=== PATIENT | male | born 2005 | race Caucasian/White ===

== ENCOUNTER 2024-01-13 21:11 | Emergency (ER) | payer MEDICAID ==
[2024-01-13 21:17] VITALS: TEMP 99.4; O2SAT 100
--- NOTE | 2024-01-13 21:34 | ERPHSYRPT ---
- History of Present Illness Time Seen by Provider: 01/13/24 21:30 Source: patient Exam Limitations: no limitations Patient Subjective Stated Complaint: headache x4 days Triage Nursing Assessment: Pt ambulated into ER without diff, pt alert and patti ented x4. Pt c/o headache x4 days, denies any nausea or vomiting. Pt's girlfriend thought it might be due to his rt ear because he was scratching his ear and cut the inside of it. No cuts or abrasions noted to rt ear. Physician History: 18yo m presents for right sided KINNEY x 4d. Pt reports the KINNEY has persisted for 4d, has waxed and wained in intensity. Pt reports ibuprofen tends to help his sx. Pt reports the pain has been keeping him from sleeping. Pt denies any vision changes, n/v, photophobia. Pt denies any recent trauma to the head or neck. Pt denies any hx of HAs of this nature. Pt denies any weakness in the extremities. Pt reports no significant pmhx, does not take any medications daily. Timing/Duration: day(s) (4), constant Quality: aching Head Pain Location: temporal Severity of Pain-Max: moderate Severity of Pain-Current: moderate Recent Head Trauma: no recent headache/trauma Modifying Factors: Improves With: medication Associated Symptoms: neck pain (chronic), No confusion, No dizziness, No fatigue, No facial pain, No fever/chills, No light-headedness, No loss of consciousness, No nausea/vomiting, No nasal congestion, No nasal drainage, No numbness in legs/feet, No rash, No seizures, No stiff neck, No trouble walking, No vision changes, No visual disturbance, No weakness Previous symptoms: no prior history Allergies/Adverse Reactions: No Known Drug Allergies Allergy (Unverified 01/13/24 21:25) Home Medications: No Reportable Medications [No Reported Medications] 01/13/24 [History] Hx Tetanus, Diphtheria Vaccination/Date Given: Yes Hx Influenza Vaccination/Date Given: No Hx Pneumococcal Vaccination/Date Given: No Travel Risk - International Travel Have you traveled outside of the country in past 3 weeks: No - Emerging Infectious Disease Are you exhibiting symptoms associated with any current EIDs: Yes Symptoms: Headaches/Body Aches/ - Review of Systems Constitutional: No Symptoms Eyes: No Eye Pain, No Photophobia, No Tearing, No Vision Changes, No Double Vision Ears, Nose, & Throat: No Ear Pain, No Hearing Changes, No Nose Pain, No Throat Pain Respiratory: No Symptoms Cardiac: No Symptoms Abdominal/Gastrointestinal: No Symptoms Neurological: Headache, No Dizziness, No Focal Weakness, No Gait Changes, No Parasthesia, No Sensory Changes, No Speech Changes - Past Medical History Pertinent Past Medical History: Yes Neurological History: No Pertinent History ENT History: No Pertinent History Cardiac History: No Pertinent History Respiratory History: No Pertinent History Endocrine Medical History: No Pertinent History Musculoskeletal History: No Pertinent History GI Medical History: No Pertinent History History: No Pertinent History Psycho-Social History: Attention Deficit Disorder, Other Male Reproductive Disorders: No Pertinent History Other Medical History: anger management in 2nd grade - Past Surgical History Past Surgical History: No - Social History Smoking Status: Current every day smoker How long have you smoked: 5 years Exposure to second hand smoke: Yes Drug Use: none - Social Determinants of Health Will the patient participate in the screening: Yes Do you worry about a steady place to live?: No Do you have any problems with any of the following?: Pest (bugs,ants,or mice) In the past 12 months,have you had to go without utilities?: No Transportation Issues: No Has anyone in your support network made you feel unsafe?: No Have you or anyone in your house had to go without enough: No - Nursing Vital Signs Nursing Vital Signs: Initial Vital Signs Temperature 99.4 F 01/13/24 21:16 Pulse Rate 80 01/13/24 21:16 Respiratory Rate 17 01/13/24 21:16 Blood Pressure 150/90 01/13/24 21:16 O2 Sat by Pulse Oximetry 100 01/13/24 21:16 Pain Scale Pain Intensity 4 - Physical Exam General Appearance: no apparent distress, alert Eye Exam: PERRL/EOMI, eyes nml inspection Ears, Nose, Throat Exam: normal ENT inspection, TMs normal, pharynx normal Neck Exam: normal inspection, non-tender, supple Respiratory Exam: normal breath sounds, lungs clear, airway intact, No chest tenderness, No respiratory distress Cardiovascular Exam: regular rate/rhythm, normal heart sounds Mental Status Exam: alert, oriented x 3, cooperative software design engineer Exam: normal hearing, normal speech, PERRL, No facial asymmetry Coordination/Gait Exam: normal finger to nose, normal gait, normal cerebellar function Motor/Sensory Exam: no motor deficit, no sensory deficit, no pronator drift, negative Babinski's sign Skin Exam: normal color, warm, dry SpO2 Interpretation: normal SpO2: 100 O2 Delivery: Room Air Ordered Tests: Active Orders 24 hr Category Date Time Status HEAD WITHOUT CONTRAST [CT] Stat Exams 01/13/24 21:33 Completed Medication Summary Discontinued Medications Generic Name Dose Route Start Last Admin Trade Name Neno PRN Reason Stop Dose Admin Diphenhydramine HCl 50 mg 01/13/24 22:23 01/13/24 22:39 Diphenhydramine Hcl 50 Mg/Ml Vial IM 01/13/24 22:24 50 mg STAT ONE Administration Diphenhydramine HCl Confirm 01/13/24 22:30 Diphenhydramine Hcl 50 Mg/Ml Vial Administered 01/13/24 22:31 Dose 50 mg .ROUTE .STK-MED ONE Droperidol 1.25 mg 01/13/24 21:33 01/13/24 21:40 Droperidol 5 Mg/2 Ml Vial IM 01/13/24 21:34 1.25 mg STAT ONE Administration Droperidol Confirm 01/13/24 21:36 Droperidol 5 Mg/2 Ml Vial Administered 01/13/24 21:37 Dose 5 mg .ROUTE .STK-MED ONE Ketorolac Tromethamine 30 mg 01/13/24 22:25 01/13/24 22:37 Ketorolac Tromethamine 30 Mg/Ml Inj IM 01/13/24 22:26 30 mg STAT ONE Administration Ketorolac Tromethamine Confirm 01/13/24 22:30 Ketorolac Tromethamine 30 Mg/Ml Inj Administered 01/13/24 22:31 Dose 30 mg .ROUTE .STK-MED ONE - Progress Progress: improved Air Movement: good Progress Note: 01/13/24 22:25 pain not completely resolved w/ droperidol will add toradol and benadryl IM 01/13/24 22:36 CT head showed: Normal CT of the head without contrast. No acute intracranial abnormality identified. 01/13/24 22:56 Pt reports resolution of KINNEY plan for discharge home, given list of primary care providers in area for follow up DO NOT TAKE ANY NSAIDS (ibuprofen, advil, naproxen, aleve) FOR THE NEXT 24 HOURS recommend avoiding bright lights, loud sounds, strong scents for the next few days if possible can use tylenol if sx return, cool rag on forehead for pain return to ED if: develop vision changes, develop significant neck pain, develop nausea/vomiting, develop confusion or speech changes Blood Culture(s) Obtained: No Antibiotics given: No Counseled pt/family regarding: diagnosis, need for follow-up, rad results Medical Desision Making - Diagnostic Testing Diagnostic test were ordered, analyzed, and reviewed by me: Yes Radiological Interpretation: Reviewed by me, Teleradiologist Report - Risk of complications Minimal Risk: Minimal risk of morbidity - Departure Departure Disposition: Home Clinical Impression: Headache Qualifiers: Headache type: unspecified Headache chronicity pattern: acute headache Intractability: not intractable Qualified Code(s): R51.9 - Headache, unspecified Condition: Stable Critical Care Time: No Referrals: DOCTOR,NO FAMILY [Primary Care Provider] - Follow up/PCP as directed Additional Instructions: plan for discharge home, given list of primary care providers in area for follow up DO NOT TAKE ANY NSAIDS (ibuprofen, advil, naproxen, aleve) FOR THE NEXT 24 HOURS recommend avoiding bright lights, loud sounds, strong scents for the next few days if possible can use tylenol if sx return, cool rag on forehead for pain return to ED if: develop vision changes, develop significant neck pain, develop nausea/vomiting, develop confusion or speech changes
[2024-01-13] MEDS ORDERED: TORAdol 30 mg Injection ONE (22:30)
[2024-01-13] MEDS ORDERED: BENADRYL 50 MG/ML ONE (22:30)
--- NOTE | 2024-01-13 22:32 | XRAY ---
CLINICAL HISTORY: headache COMPARISON: None. TECHNIQUE: Axial non-contrast CT scan of the brain was performed from the skull base to the high parietal region. One of the following dose reduction techniques were utilized for this exam: Automated exposure control, adjustment of the mA and/or kV according to patient size, use of iterative reconstruction. FINDINGS: Brain Parenchyma: Normal attenuation of the cerebral hemispheres, cerebellum, and brainstem. No evidence of acute infarct, hemorrhage, or mass effect. No abnormal areas of hypo- or hyperattenuation. Ventricular System: Ventricles are normal in size and configuration. No evidence of hydrocephalus or ventricular enlargement. Subarachnoid Spaces: Normal sulci and cisterns. No evidence of subarachnoid hemorrhage or extra-axial fluid collections. Cerebellum and Brainstem: Normal size and signal. No masses, lesions, or areas of abnormal signal. Orbits: Normal appearance of the globes, optic nerves, and extraocular muscles. No evidence of orbital masses or abnormal signal. Sinuses: Minimal mucosal thickening is identified in bilateral ethmoid sinuses. Left sided bony spur is identified along the nasal septum. Mastoid Air Cells: Clear mastoid air cells. No evidence of mastoiditis. Skull and Meninges: Normal skull morphology. No evidence of meningeal thickening. IMPRESSION: Normal CT of the head without contrast. No acute intracranial abnormality identified. Electronically Signed by: Vidya Tirado MD. (01/13/2024 22:28:30 EDT)
[2024-01-13] MEDS: TORAdol 30 mg Injection IM ONE (22:37)
[2024-01-13] MEDS: BENADRYL 50 MG/ML IM ONE (22:39)
[2024-01-13 23:07] VITALS: BP 130/84; PULSE 66; RESP 16
== END 2024-01-13 23:08 | disposition home or self-care (01) ==
LOC: ED 21:11
DX: R51.9 Headache, unspecified (principal); Z72.0 Tobacco use; Z59.19 Other inadequate housing
CPT/HCPCS: 70450; 96372; 99283; J1200; J1885